=== PATIENT | female | born 1980 | race Caucasian/White ===

== ENCOUNTER 2019-10-13 20:21 | Observation (INO) | payer MEDICAID ==
[~2019-10-13] VITALS: Ht 160 cm; Wt 62.1 kg
[~2019-10-13 20:21] MED LIST: APRISO0.375 GM PO; ATIVAN 0.50.5 MG/TAB PO; BENTYL 10MG10 MG/CAP; BENTYL 20MG20 MG/TAB PO; CIPRO 250MG TA250 MG PO; CIPRO 500MG TA500 MG PO; DAZIDOX10 MG PO; DIFLUCAN150 MG PO; EFFEXOR 3737.5 MG/TA PO; FLAGYL500 MG PO; KLONOPIN 0.5MG0.5 MG PO; LEVSIN 0.10.125 MG/T PO; LIALDA 1.2 GM1.2 GM PO; NO HOME MEDICATIONS; NORCO 325 MG-51 TAB PO; NORCO 325 MG-7.1 TAB PO; PEPCID 20MG TAB20 MG PO; PERCOCET 325 MG1 TA2 PO; PHENERGAN 25 TA25 MG PO; PHENERGAN25 MG RC; PREDNISONE20 MG; PREDNISONE20 MG PO; PREVACID 15MG15 M1 PO; PROMETHAZINE12.5 M5 PO; ROXICODONE 55 MG/TAB PO; ZOFRAN 4MG T4 MG/TAB PO; ZOVIA 1/35E 351 TA1 PO
[2019-10-13 21:38] LABS: ALBUMIN 5.1 gm/dL (3.5-5.0); BASO # 0.1 (0.0-0.2); BASO % 0.5 % (0.0-2.0); BILIRUBIN,TOTAL 0.4 mg/dL (0.0-1.0); CALCIUM 9.8 mg/dL (8.4-10.2); CREATININE, serum 0.85 (0.52-1.25); EOS # 0.1 (0.0-0.7); EOS % 1.3 % (0-4.0); GRAN # 4.4 (1.4-6.5); GRAN % 48.7 % (42.2-75.2); HEMOGLOBIN 11.7 g/dl (12.5-16.0); LYMPH # 3.9 (1.2-3.4); LYMPH % 42.9 % (20.0-51.0); MEAN CELL VOLUME 93 fl (80.0-100.0); MEAN CORPUSCULAR HEMOGLOBIN 31 pg (27.0-31.0); MEAN CORPUSCULAR HGB CONC 33 g/dl (33.0-37.0); MEAN PLATELET VOLUME 10.4 fl (7.4-10.4); MONO # 0.6 (0.1-0.6); MONO % 6.3 % (1.7-9.3); PLATELET COUNT 364 K/mm3 (130-400); POTASSIUM 3.8 mmol/L (3.4-5.0); RED BLOOD COUNT 3.81 M/mm3 (4.10-5.30); REDCELL DISTRIBUTION WIDTH-CV 13.3 % (11.5-14.5)
[2019-10-13 21:40] LABS: HEMATOCRIT 35.4 % (37.0-47.0)
[2019-10-13] MEDS ORDERED: ZOLOFT 100MG100 MG PO (23:09)
[2019-10-13] MEDS ORDERED: NEURONTIN600 MG/TAB PO (23:10)
[2019-10-13] MEDS ORDERED: AMBIEN 10MG10 MG PO (23:11)
[2019-10-13] MEDS ORDERED: XANAX XR3 MG PO ×2 (23:12)
[2019-10-13] MEDS ORDERED: PREMARIN 225 MG/VIAL IJ (23:13)
[2019-10-13 23:18] LABS: COLLECTION METHOD CLEAN CATCH
[2019-10-13 23:25] LABS: PH 5 (5-8); SQUAMOUS EPITHELIAL None Seen /hpf; URINE APPEARANCE Clear; URINE BACTERIA None Seen /hpf; URINE BILIRUBIN Negative (NEGATIVE); URINE BLOOD 2+ (NEGATIVE); URINE COLOR Straw; URINE GLUCOSE Negative (NEGATIVE); URINE KETONE Negative (NEGATIVE); URINE LEUKOCYTE ESTERASE Negative (NEGATIVE); URINE NITRATE Negative (NEGATIVE); URINE PROTEIN(semi-quant) Negative (NEGATIVE); URINE UROBILINOGEN Negative (NEGATIVE)
[2019-10-14 07:48] VITALS: BP 98/77; PULSE 82; TEMP 98.3
--- NOTE | 2019-10-14 09:14 | NUR ---
PT HAD C/O PAIN FROM [place] AND ASKED IF WE CAN REMOVE IT. THIS NURSE CALLED [facility] RECIEVED VERBAL ORDER TO DC. UNRINE WAS GILBERTO AND CLEAR WHEN REMOVED MONTES NO NOTED BLOOD CLOTS OR HEMATURIA SEEN.
--- NOTE | 2019-10-14 11:06 | NUR ---
SW met with the patient to discuss discharge plan. The patient lives in [place] with her roommate, Ildefonso. She states that her son, Chase Bass (ph#[phone]), lives in [place]; which is fifteen minutes away from her. She reports needing occasional assistance with bathing and does not have any DME. 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 She states that she will either help herself with bathing or have a close friend, that is like a brother assist her. The patient's PCP is a Dr. Pabon and she receives her medications [facility]. She reports no difficulties obtaining her meds. The patient does not have advanced directives, but she was interested in completing a DPOA-HC. The patient designated her son (Chase Bass) and mother (Yahaira Mcgarry, ph#[phone]). KANWAL and certified health education specialist, Sherley, witnessed the patient's signature. The patient was provided with the original and some copies. A copy was placed in the patient's chart. The patient may be transferring to [facility]. No additional needs at this time, but SW to continue to follow.
[2019-10-14 11:52] VITALS: BP 116/55; PULSE 66; TEMP 98.7
[2019-10-14 15:49] VITALS: BP 154/89; PULSE 89; TEMP 99.3
[2019-10-14] MEDS ORDERED: CEPHALEXIN250 M1 PO (17:20)
[2019-10-14 20:00] VITALS: BP 117/62; PULSE 88; TEMP 98
--- NOTE | 2019-10-14 20:00 | NUR ---
Report received. Assumed care for steward/stewardess night. A&Ox3. Assessment complete. States she has voided post meadows removal but forgot to use cup. Discussed importance of PO intake and need to bladder scan to ensure adequate output. Verbalizes understanding. Cup in bathroom has 20mls of bloody fluid in it. Appears very fidgety-picking at skin, toenails and pubic region. Has clipped toe nails down so far is bleeding from toe nails. Provided with bandaids. Denies nausea/shortness of breath. LR@125mls/hr to Right AC IV. States she would like her IV placed in left arm as machine continuously beeps. Right AC IV wrapper per request for showering. Will restart when out of shower. Denies needs. WIll monitor.
--- NOTE | 2019-10-14 21:00 | NUR ---
This nurse to room to reconnect IV/restart IV. Sitting in bathroom on toilet still clipping toe nails. Still has not taken a shower, states she is getting in after she is done clipping her toenails. Instructed to call when she is done showering.
--- NOTE | 2019-10-14 21:45 | NUR ---
Called stating she was done showering and in pain. IV restarted in Left wrist, #20g, x1 attempt. LR@125ml/hr. Pain meds given per dr order. States she voided but missed the cup-states she only hit the hat for 20mls. Noted to be bright red with small clots. Bladder scan completed as states she can only go small amounts. Less than 40mls. Will continue to monitor output and encourage PO intake. Denies feeling as if she has distension. States she hasnt tolerated much PO.
--- NOTE | 2019-10-15 | NUR ---
Called with c/o pain to bladder/flanks bilat. Rating pain 7/10 on pain scale, described as throbbing. States she would like nursing staff to put pain medications in the closest port to her IV site as she hasnt been getting "the high feeling" when it is put in the port further down. Explained that this nurse has been putting it in the closest port each time. States "I dont understand why I am not getting that good feeling in my shoulders." LR continues to infuse at 125mls/hr. Voided again-approx 100mls of reddish fluid. Encouraged to continue to increase PO intake and continue to do six cup routine until all cups are used. Verbalizes understanding. Call light in reach. Will monitor.
[2019-10-15 00:04] VITALS: BP 117/73; PULSE 68; TEMP 98.4
--- NOTE | 2019-10-15 04:30 | NUR ---
Called to desk stating she is in severe pain. Rating pain 8/10 bilat flanks/bladder, described as throbbing. Sitting up on toilet crying stating "I messed myself, and I also peed but forgot to pee in hat because I had diarrhea." Had already flushed toilet so couldnt assess output. States she has been dry heaving as well. Dilaudid/percocet given per dr order as well as phenergan. Instructed to call next episode. Call light in reach. Will monitor.
[2019-10-15 04:56] VITALS: BP 144/78; PULSE 76; TEMP 97.8
[2019-10-15 08:35] VITALS: BP 136/79; PULSE 72; TEMP 98.8
--- NOTE | 2019-10-15 11:50 | NUR ---
First visit from the window decorator. prayed with patient. No other needs right now.
[2019-10-15 12:34] LABS: COLLECTION METHOD CATHETER
[2019-10-15 12:41] VITALS: BP 131/61; PULSE 70; TEMP 98.4
[2019-10-15 12:48] LABS: PH 6 (5-8); URINE APPEARANCE Hazy; URINE BACTERIA Rare /hpf; URINE BILIRUBIN Negative (NEGATIVE); URINE BLOOD 3+ (NEGATIVE); URINE COLOR Red; URINE GLUCOSE Negative (NEGATIVE); URINE KETONE Negative (NEGATIVE); URINE LEUKOCYTE ESTERASE Trace (NEGATIVE); URINE NITRATE Negative (NEGATIVE); URINE PROTEIN(semi-quant) 2+ (NEGATIVE); URINE RBC >50 /hpf; URINE UROBILINOGEN Negative (NEGATIVE)
[2019-10-15 16:46] VITALS: BP 172/80; PULSE 56; TEMP 98.2
--- NOTE | 2019-10-15 18:00 | NUR ---
PT HAD MINIMAL VOIDING BUT STATES SHE HAS HAD LOOSE STOOLS AND HAS POSSIBLY LEAKED SOME WITH THEM. HAS SET HER CLOCK ON HER PHONE AND SHE WROTE HER PAIN MEDS TIMES ON WHITE BOARD TO KEEP TRACK OF THEM, HAS BEEN REQUESTING THEN EVERY TIME THEY ARE AVALIBLE TO GIVE NEXT DOSE. HAS BEEN TEARFUL AT TIMES. NEEDED SOME NAUSEA MEDS THIS EVENING DUE TO PAIN BECOMING SO BAD SHE WAS NAUSEATED. HAS AMBULATED IN [place] SOME TO GET HER OWN DRINKS FROM NUTRITON ROOM. HASNT EATEN MUCH DUE TO PAIN. HAS NOTED RASHES AROUND AREAS OR TAPE FROM [employer]EX AND HAS BEEN ITCHY TO THOSE AREAS.
--- NOTE | 2019-10-15 20:24 | NUR ---
REPORT RECVD FROM LANDON MARIN. PT CALLED FOR NIGHT TIME MEDICATIONS FOR PAIN. ASSESSMENT COMPLETED. PT VITALS WNL. PT HAS NO COMPLAINTS ASIDE FROM PAIN AT THIS TIME. ENCOURAGED PT TO VOID REGARDLESS OF PAIN, AND THAT WE CAN TAKE CARE OF THE PAIN. PT WAS UNDERSTANDING, AND IS READY TO SLEEP. WILL CONTINUE TO MONITOR THROUGHOUT THE NIGHT. PT CALL LIGHT WITHIN REACH. PERSONAL PHONE WITHIN REACH. NO FURTHER CONCERNS AT THIS TIME.
[2019-10-15 22:34] VITALS: BP 111/88; PULSE 68; TEMP 98.5
[2019-10-16 02:50] VITALS: BP 119/67; PULSE 61; TEMP 98.5
--- NOTE | 2019-10-16 08:04 | NUR ---
PT HAD A VERY DIFFICULT NIGHT. WAS UNABLE TO SLEEP, AND KEPT COMPLAINING OF HALLUCINATIONS. ONCE THIS RN TURNED OFF HER LIGHTS, AND HAD HER PUT HER PHONE ON SILENT, SHE WAS ABLE TO SLEEP FROM 0345 UNTIL 0630. PT IS CONSISTENT WITH PAIN MEDICATIONS, AND WILL CALL [facility] TO GET ANY MEDICATIONS AVAILABLE. PT HAS STATED PAIN ANYWEHRE BETWEEN 5-07/02. REPORT GIVEN TO LANDON TIM. TRANSFER OF CARE COMPLETED.
[2019-10-16 09:28] VITALS: BP 155/100; PULSE 76; TEMP 99.3
--- NOTE | 2019-10-16 13:15 | NUR ---
Patient is back from her procedure. She is sleepy. Denies pain or nausea at this time. Explained that she have some burning with urination. Vital signs stable. She is oriented x4. Shs did not want anything to eat or drink at this time. Call light within reach.
[2019-10-16 15:25] VITALS: BP 130/88; PULSE 94; TEMP 99.6
--- NOTE | 2019-10-16 20:06 | NUR ---
Pt in room, crying. States that son's grandfather has just . Pt is very distraught, and is not coping well. Assessment completed, report received from LANDON Brooks. Pt required pain management and will likely need additional xanax as she is beginning to have a panic attack. Will continue to monitor through the evening. No other concerns at this time.
--- NOTE | 2019-10-16 20:48 | NUR ---
Reactor Service Operator was called in per patient request. Reactor Service Operator spoke and prayed with patient. No other needs right now.
[2019-10-16 22:24] VITALS: BP 101/70; PULSE 97; TEMP 99
[2019-10-17 05:07] VITALS: BP 117/77; PULSE 90; TEMP 99
--- NOTE | 2019-10-17 07:23 | NUR ---
Report given to LANDON Hoffmann. Transfer of care complete.
--- NOTE | 2019-10-17 08:17 | NUR ---
PATIENT ASSESSMENT COMPLETED. SHE IS VERY TALKATIVE IN THE BED REPORTS HAVING PAIN WITH VOIDING. SHE HAS HAD MEDICATION RECENTLY. HEAT PACK IS NEEDED
[2019-10-17 08:33] VITALS: BP 95/74; PULSE 74; TEMP 97
--- NOTE | 2019-10-17 09:15 | NUR ---
PATIENT IS GIVEN 1 TAB PERCOCET, 0.5MG DILAUDID IVP AND 12.5 MG OF BENADRYL. FOR HER TERRIBLE ITCHING AND AWFUL PAIN. DOCTOR IS IN THE ROOM. NEW ORERS HAVE BEEN ORDERED
--- NOTE | 2019-10-17 12:30 | NUR ---
PATIENT DISCHARGE INSTRUCTIONS REVIEWED WITH PATIENT. NEW SCRIPTS FOR DIFLUCAN AND PERCOCET 7.5MG WRITTEN BY DR. FELDMAN
--- NOTE | 2019-10-17 12:50 | NUR ---
PATIENT IS DISCHARGED TO HOME. UPON ADMISSION TO THE HOSPITAL SHE HAD $180, WHEN WE WERE GOING OVER PAPERWORK TO LEAVE SHE SHOWS ME THAT SHE ONLY HAS $106 [place]. SHE WILL BE CALLING AND TALK WITH RISK MANAGEMENT ON SATURDAY NUMBER IS PROVIDED. I HAVE ALSO TALKED WITH JAUN THE HOUSE SUPERVISIOR RELATED TO THIS PRIOR TO THE PATIENT DISCHARGING. HAS ALL OTHER BELONGINGS PER HER REPORT
--- NOTE | 2019-10-17 13:00 | NUR ---
Patient in the process of being discharged. Vital signs refused by patient at this time.
== END 2019-10-17 12:50 | disposition home or self-care (01) ==
LOC: COL.ER 20:21 → MEDICAL 22:16 → OB 22:16 → MEDICAL 10-14 07:17
PROVIDERS: Family Medicine; ADMIT Urology
DX: R31.0 Gross hematuria (principal); F32.9 Major depressive disorder, single episode, unspecified; G89.29 Other chronic pain; A69.20 Lyme disease, unspecified; D64.9 Anemia, unspecified; Z87.891 Personal history of nicotine dependence; Z90.49 Acquired absence of other specified parts of digestive tract; Z90.710 Acquired absence of both cervix and uterus; Z88.2 Allergy status to sulfonamides; Z91.040 Latex allergy status; Z79.51 Long term (current) use of inhaled steroids; Z90.79 Acquired absence of other genital organ(s); Z90.722 Acquired absence of ovaries, bilateral
CPT/HCPCS: G0378; J0690; J1100; J1170; J1200; J1885; J2060; J2250; J2405; J2550; J2704; J3010; J7120; Q9967

== ENCOUNTER 2020-07-15 17:11 | Emergency (ER) | payer MEDICAID ==
[~2020-07-15] VITALS: Ht 160 cm; Wt 56.8 kg
[~2020-07-15 17:11] MED LIST changes: +AMBIEN 10MG10 MG PO; +CEPHALEXIN250 M1 PO; +ESTRACE2 MG PO; +NEURONTIN600 MG/TAB PO; +PREMARIN 225 MG/VIAL IJ; +XANAX 1MG1 MG PO; +XANAX XR3 MG PO; +ZOLOFT 100MG100 MG PO; +ZYRTEC 10MG10 MG PO
[2020-07-15 17:23] VITALS: TEMP 97
[2020-07-15 17:56] LABS: BASO # 0.1 (0.0-0.2); EOS # 0.2 (0.0-0.7); GRAN # 2.7 (1.4-6.5); LYMPH # 2.6 (1.2-3.4); LYMPH % 42.3 % (20.0-51.0); MEAN CELL VOLUME 92 fl (80.0-100.0); MEAN CORPUSCULAR HGB CONC 31 g/dl (33.0-37.0); MEAN PLATELET VOLUME 9.6 fl (7.4-10.4); MONO # 0.5 (0.1-0.6); MONO % 8.5 % (1.7-9.3); PLATELET COUNT 369 K/mm3 (130-400); RED BLOOD COUNT 2.91 M/mm3 (4.10-5.30); REDCELL DISTRIBUTION WIDTH-CV 15.3 % (11.5-14.5)
[2020-07-15 17:57] LABS: HEMATOCRIT 26.8 % (37.0-47.0); HEMOGLOBIN 8.4 g/dl (12.5-16.0); MEAN CORPUSCULAR HEMOGLOBIN 29 pg (27.0-31.0)
[2020-07-15 18:10] LABS: CREATININE, serum 0.73 (0.52-1.25)
[2020-07-15 18:11] LABS: ALBUMIN 4.3 gm/dL (3.5-5.0); BILIRUBIN,TOTAL 0.3 mg/dL (0.0-1.0); C-REACTIVE PROTEIN 0.6 mg/dL (0.0-0.9); CALCIUM 9.3 mg/dL (8.4-10.2); POTASSIUM 3.7 mmol/L (3.4-5.0); TOTAL PROTEIN 7.7 gm/dL (6.4-8.2)
[2020-07-15 18:40] VITALS: BP 113/68; PULSE 79
== END 2020-07-15 18:40 | disposition home or self-care (01) ==
LOC: COL.ER 17:11
PROVIDERS: Emergency Medicine
DX: R10.9 Unspecified abdominal pain (principal); R19.5 Other fecal abnormalities; Z90.710 Acquired absence of both cervix and uterus; Z88.2 Allergy status to sulfonamides; Z88.8 Allergy status to other drugs, medicaments and biological substances; Z88.6 Allergy status to analgesic agent; Z32.02 Encounter for pregnancy test, result negative
CPT/HCPCS: J1170; J1630; J2060; J7030